=== PATIENT | female | born 1985 | race Caucasian/White ===

== ENCOUNTER 2017-09-30 18:48 | Emergency (ER) | payer OTHER ==
[2017-09-30 19:52] LABS: #Monocytes 0.3 thou/uL (0.11-0.59); #Neutrophils 6.6 thou/uL (1.40-6.50); %Basophils 0.2 % (0.0-1.0); %Eosinophils 0.2 % (0.0-10.0); %Lymphocytes 12.9 % (21.0-51.0); %Monocytes 3.4 % (0.0-10.0); Hematocrit 44.8 % (36.0-47.0); Mean Platelet Volume 6.5 fL (7.4-10.4); Red Blood Cell (RBC) Count 5.11 mill/uL (4.20-5.40); White Blood Cell (WBC) Count 7.9 thou/uL (4.8-10.8)
[2017-09-30 20:34] LABS: Bilirubin Negative (Negative); Blood, Urine Large (Negative); Glucose, Urine (Dipstick) Negative (Negative); Ketone, Urine Negative (Negative); Nitrite Negative (Negative); Protein, Urine (Dipstick) 30 mg/dL (Neg-Trace)
[2017-09-30 20:36] LABS: Bacteria/HPF Rare-Few HPF (None Seen); Hyaline Casts/LPF 0-3 HYALINE CAST LPF (0-3 Hyaline); RBC/HPF 21-50 HPF (0-3)
[2017-09-30 20:39] LABS: ALT (SGPT) 27 U/L (8-55); AST (SGOT) 24 U/L (5-34); Alkaline Phosphatase 43 U/L (40-150); Anion Gap 14 mmol/L (10-20); BUN (Urea Nitrogen) 16 mg/dL (7.0-18.7); Bilirubin, Total 0.3 mg/dL (0.2-1.2); Calc. Creatinine Clearance 0 mL/min (70-130); Calcium 9.7 mg/dL (7.8-10.44); Carbon Dioxide 21 mmol/L (22-29); Chloride 107 mmol/L (98-107); Estimated GFR-MDRD 80; Globulin 3.8 g/dL (2.4-3.5); Protein, Total 7.7 g/dL (6.0-8.3)
--- NOTE | 2017-09-30 23:15 | ULT ---
PELVIC ULTRASOUND 09/30/17 COMPARISON: None. HISTORY: Vaginal bleeding. female. TECHNIQUE: Multiplanar marquez scale and color doppler images were obtained in a transabdominal and transvaginal pe lvic ultrasound. Spectral analysis of the doppler waveforms of the ovaries were performed. FINDINGS: Gestational sac is seen within the uterus. This contains a yolk sac and a pole. [place] th of the pole is 0.84 cm. This estimates gestational age at 6 weeks, 6 days. No heart to chas are able to be detected within this pole. There are multiple Nabothian cysts in the cervix. No free fluid is seen in the pelvis. The left ovary is normal in size and appearance and demonstrate normal internal flow. The right ovary could not be visualized. IMPRESSION: There is an intrauterine with estimated age of 6 weeks, 6 days. No heart tones are de tected at this time. This is likely because this is a very early . Recommend a followup ultr asound in 2 to 3 weeks to evaluate for viability. POS: [facility]
== END 2017-09-30 22:28 | disposition home or self-care (01) ==
LOC: ERS 18:48
DX: O20.0 Threatened abortion (principal); O23.41 Unspecified infection of urinary tract in pregnancy, first trimester; O99.211 Obesity complicating pregnancy, first trimester; O99.511 Diseases of the respiratory system complicating pregnancy, first trimester; J45.909 Unspecified asthma, uncomplicated
CPT/HCPCS: 36415; 76856; 80053; 81003; 81015; 84702; 85025; 86850; 86900; 86901

== ENCOUNTER 2017-10-02 13:12 | Emergency (ER) | payer OTHER ==
[2017-10-02] MEDS ORDERED: Morphine 4 MG/ML VIAL ONE ×2 (13:48→14:46)
[2017-10-02 14:00] LABS: #Eosinphils 0.1 thou/uL (0.0-0.7); #Lymphocytes 4.2 thou/uL (1.20-3.40); #Monocytes 0.8 thou/uL (0.11-0.59); #Neutrophils 13.2 thou/uL (1.40-6.50); %Basophils 0.2 % (0.0-1.0); %Eosinophils 0.5 % (0.0-10.0); %Lymphocytes 23.1 % (21.0-51.0); %Monocytes 4.4 % (0.0-10.0); Mean Platelet Volume 6.2 fL (7.4-10.4); Red Blood Cell (RBC) Count 4.83 mill/uL (4.20-5.40); White Blood Cell (WBC) Count 18.3 thou/uL (4.8-10.8)
[2017-10-02] MEDS ORDERED: Ondansetron HCl/PF 4 MG/2 ML Vial ONE (14:13)
[2017-10-02] MEDS ORDERED: Lidocaine 1% PF 5 ML VIAL ONE (14:13)
[2017-10-02] MEDS ORDERED: Propofol 200 MG/20 ML VIAL ONE (14:13)
[2017-10-02] MEDS ORDERED: Succinylcholine Chloride 20 MG/ML 10 ml SYRINGE FS ONE (14:13)
[2017-10-02] MEDS ORDERED: Ketorolac Tromethamine 30 MG/ML VIAL ONE ×2 (15:14→20:05)
[2017-10-02] MEDS ORDERED: Misoprostol 200 MCG TAB PR SCH (15:15)
[2017-10-02] MEDS ORDERED: Fentanyl 100 MCG/2 ML VIAL ONE ×3 (17:22→20:03)
--- NOTE | 2017-10-02 17:22 | ULT ---
ULTRASOUND TRANSVAGINAL DOPPLER DUPLEX: Date: 10/02/17 Time: 4:48 p.m. HISTORY: 32-year-old female, in progress. Rule out retained products of conception. COMPARISON: 09/30/17 TECHNIQUE: Endovaginal transducer used to evaluate the contents of the uterus, using marquez scale, color flow and spectral analysis. The ovaries were not evaluated. FINDINGS: The previously demonstrated gestational sac containing an embryonic pole, is no longer visualized. Cu rrently, the endometrial stripe is thickened to approximately 25 mm (2.5 cm). Within the central port ion of this thickened endometrial stripe, there is an irregularly shaped, approximately 1.5 cm small, hypoechoic-intermediate echogenicity lesion that has blood flow demonstrated by color doppler. It is uncertain whether this represents mild active endometrial bleeding or retained product of conception . IMPRESSION: 1. Spontaneous . 2. Small lesion with blood flow in the center of a thickened endometrium. POS: [facility]
[2017-10-02] MEDS ORDERED: CEFAZOLIN/Water 2 GM/20 ML SYRINGE SLOW IVP SCH (18:30)
[2017-10-02] MEDS ORDERED: CEFAZOLIN SLOW IVP SCH (18:45)
[2017-10-02] MEDS ORDERED: WATER SLOW IVP SCH (18:45)
[2017-10-02] MEDS ORDERED: PRE FILLED SLOW IVP SCH (18:45)
[2017-10-02] MEDS ORDERED: Misoprostol 200 MCG TAB ONE (18:51)
[2017-10-02] MEDS ORDERED: Promethazine HCl 25 MG/ML VIAL ONE (20:27)
--- NOTE | 2017-10-04 00:03 | HP ---
CHIEF COMPLAINT: Heavy vaginal bleeding and cramping. HISTORY OF PRESENT ILLNESS: At the time of presentation, Ms. Torres is a 32-year-old female who see s Dr. Thurman for care. She was seen approximately 2 days ago in the Emergency Department and diagnosed with the flu. Patient had a known IUP, but at the time of her evaluation in the Emergency Department was found to be a missed . The patient has opted for expectant management and de veloped heavy vaginal bleeding and cramping today. Additionally, she was found to have a drop in her quantitative HCG from 6000 two days ago to approximately 3000. The patient denies any fever or chills. She denies any vomiting, constipation or diarrhea. She gissell es any cardiovascular or respiratory complaints. REVIEW OF SYSTEMS: Limited review of systems per HPI. PAST MEDICAL HISTORY: Asthma. The patient is a smoker. Obesity. PAST SURGICAL HISTORY: Negative. ALLERGIES: No known drug allergies. PHYSICAL EXAMINATION: VITAL SIGNS: Within normal limits. The patient is afebrile. GENERAL: Nontoxic appearing, morbidly obese female, in no acute distress. HEENT: Normocephalic and atraumatic. LUNGS: Clear to auscultation. CARDIOVASCULAR: Regular rate and rhythm. ABDOMEN: Obese and nontender. No rebound, no guarding. GENITOURINARY: Cervix was examined and found to be approximately 3 cm dilated with either products o r clot presenting through the cervical os. ASSESSMENT AND PLAN: Incomplete SAB. Options of medical management versus surgical management were reviewed with the patient. Decision was made to attempt medical management with Cytotec in the Emerg ency Department, given that she is already 3 cm dilated. We will perform an ultrasound after the Cyt otec and reevaluate at that time. The patient is currently not having extremely heavy vaginal bleedi ng. She will be treated for pain with Toradol.
--- NOTE | 2017-10-04 07:04 | OP ---
DATE OF PROCEDURE: 10/02/2017 PREOPERATIVE DIAGNOSIS: Incomplete . The patient declines any further medical management. POSTOPERATIVE DIAGNOSIS: Incomplete . The patient declines any further medical management. ANESTHESIA: General. ATTENDING: Dr. Kristina Castle. PROCEDURE: Suction dilation and curettage. FINDINGS: Consistent with products of conception through cervical os that was already dilated 3 cm. ESTIMATED BLOOD LOSS: 50 mL IV FLUIDS: Replacement. URINE OUTPUT: None. DRAINS: None. COUNTS: Correct. COMPLICATIONS: None immediate. DISPOSITION: Stable to PACU and thereafter to home. DETAILED OPERATIVE NOTE: Risks, benefits, and alternatives of the procedure were reviewed with the p atient and questions answered to her and her [id number]'s satisfaction. The patient was taken to the operating room where anesthesia was administered. She was placed in lithotomy position, prepped and draped in the usual sterile fashion. A weighted speculum was placed into the vagina and the ante rior portion of the cervix was grasped with a ring forceps. The clot was extruding through the os wa s extracted. A 12-mm curved suction curet was inserted and with gentle suction curettage, the remain ing products of conception were extracted from the uterus. A light curettage with serrated curet was performed until good crie was obtained in all four quadrants of the uterus. The patient had no active bleeding at the conclusion of the case. Ring forceps and weighted speculum were both removed from the vagina. The patient was given 600 of Cytotec per rectum. Of note, patient received Ancef 3 grams IV consulting business developer to the OR and Toradol in PACU. SPECIMENS: Products of conception to pathology.
== END 2017-10-02 21:51 | disposition admitted as inpatient to this hospital (09) ==
LOC: ERS 13:12
DX: O03.4 Incomplete spontaneous abortion without complication (principal); J45.909 Unspecified asthma, uncomplicated; E66.9 Obesity, unspecified; Z87.891 Personal history of nicotine dependence
CPT/HCPCS: 36415; 76856; 84702; 85025; 86850; 86900; 86901; 88305; 96374; 96375; 96376; J1885; J2001; J2270; J2405; J2550; J2704; J3010

== ENCOUNTER 2018-01-17 10:33 | Emergency (ER) | payer OTHER ==
[2018-01-17] MEDS ORDERED: methylPREDNISolone Sod Succ/PF 125 MG/2 ML VIAL ONE (11:05)
--- NOTE | 2018-01-17 11:48 | RAD ---
PORTABLE CHEST ONE VIEW: Date: 01-17-18 Time: 11:08 a.m. History: Shortness of breath, cough, vomiting, asthma, dyspnea. FINDINGS: The heart size appears prominent, likely due to magnification. The lungs are well expanded without co nfluent areas of consolidation or pneumothorax, yuri pulmonary edema or pleural effusions. IMPRESSION: No acute process. POS: OFF
[2018-01-17] MEDS ORDERED: Acetaminophen 500 MG TAB ONE (12:14)
[2018-01-17] MEDS ORDERED: Ondansetron HCl/PF 4 MG/2 ML Vial ONE (12:17)
[2018-01-17 12:28] LABS: #Eosinphils 0.1 thou/uL (0.0-0.7); #Lymphocytes 1.3 thou/uL (1.20-3.40); #Monocytes 0.4 thou/uL (0.11-0.59); #Neutrophils 9.2 thou/uL (1.40-6.50); %Basophils 0.1 % (0.0-1.0); %Lymphocytes 11.7 % (21.0-51.0); %Monocytes 3.2 % (0.0-10.0); %Neutrophils 83.9 % (42.0-75.0); Hemoglobin 12.8 g/dL (12.0-16.0); Mean Corpuscular HGB CONC 32.4 g/dL (32.0-36.0); Mean Corpuscular Hemoglobin 24.5 pg (27.0-31.0); Mean Corpuscular Volume 75.6 fl (81.0-99.0); Mean Platelet Volume 7.2 fL (7.4-10.4); Platelet Count 247 thou/uL (130-400); RBC Distribution Width 14.5 % (11.5-14.5); Red Blood Cell (RBC) Count 5.23 mill/uL (4.20-5.40); White Blood Cell (WBC) Count 10.9 thou/uL (4.8-10.8)
[2018-01-17 12:39] LABS: ALT (SGPT) 15 U/L (8-55); AST (SGOT) 16 U/L (5-34); Alkaline Phosphatase 58 U/L (40-150); Anion Gap 15 mmol/L (10-20); BUN (Urea Nitrogen) 13 mg/dL (7.0-18.7); Bilirubin, Total 0.6 mg/dL (0.2-1.2); Calc. Creatinine Clearance 0 mL/min (70-130); Calcium 9.2 mg/dL (7.8-10.44); Carbon Dioxide 23 mmol/L (22-29); Chloride 103 mmol/L (98-107); Estimated GFR-MDRD 86; Globulin 2.9 g/dL (2.4-3.5); Glucose 121 mg/dL (70-105); Potassium 4.3 mmol/L (3.5-5.1); Protein, Total 6.9 g/dL (6.0-8.3); Sodium 137 mmol/L (136-145)
[2018-01-17 12:44] LABS: CKMB 1.4 ng/mL (0-6.6); Troponin I Less than 0.010 ng/mL (< 0.028)
[2018-01-17] MEDS ORDERED: Magnesium Sulfate 2 GM/100 ML BAG ONE (13:19)
== END 2018-01-17 14:21 | disposition home or self-care (01) ==
LOC: ERS 10:33
DX: J45.901 Unspecified asthma with (acute) exacerbation (principal); E66.9 Obesity, unspecified; Z87.891 Personal history of nicotine dependence
CPT/HCPCS: 71045; 80053; 82553; 83605; 84484; 85025; 87804; 93005; 94640; 96361; 96365; 96375; J2405; J2930; J3475; J7620